=== PATIENT | female | born 1980 | race Caucasian/White ===

== ENCOUNTER → 2024-08-19 | Outpatient (CLI) | payer OTHER ==
[2024-08-19 16:30] LABS: ALT/SGPT 32 U/L (7.0-40); AST/SGOT 23 U/L (<34); CALCIUM LEVEL 9.7 MG/DL (8.5-10.1); CARBON DIOXIDE LEVEL 26 MMOL/L (20-31); CHLORIDE LEVEL 106 MMOL/L (98-107); CREATININE FOR GFR 0.77 MG/DL (0.55-1.30); GLOMERULAR FILTRATION RATE > 90.0 (>58); POTASSIUM SERUM 4.4 MMOL/L (3.5-5.1); SODIUM LEVEL 145 MMOL/L (136-145)
[2024-08-19 16:31] LABS: PROLACTIN 8.20 NG/ML
[2024-08-19 16:32] LABS: FREE T4 0.97 NG/DL (0.89-1.76)
[2024-08-19 17:17] LABS: ESTIMATED AVERAGE GLUCOSE 105.0 MG/DL (60-110)
[2024-08-21 10:00] LABS: DEHYDROEPIANDROSTERONE SULFATE 134.0 mcg/dL (15-205)
[2024-08-21 12:30] LABS: HPV APTIMA Not Detected (Not Detected)
[2024-08-24 22:07] LABS: TESTOSTERONE FREE (DIRECT) 3.2 pg/mL (0.1-6.4); TESTOSTERONE TOTAL FOR T&D 20.0 ng/dL (2-45)
[2024-08-27 19:28] LABS: 17 HYDROXY PROGESTERONE 74.0 ng/dL
== END ==
LOC: M PLALAB 11:31
PROVIDERS: ATTEND Nurse Practitioner Family
DX: Z12.4 Encounter for screening for malignant neoplasm of cervix (principal); L68.0 Hirsutism; R87.610 Atypical squamous cells of undetermined significance on cytologic smear of cervix (ASC-US)
CPT/HCPCS: 36415; 74018; 80053; 82627; 82652; 83036; 83498; 84146; 84402; 84403; 84439; 84443; 87624; G0123